=== PATIENT | male | born 1950 | race Caucasian/White ===

== ENCOUNTER 2018-01-31 14:33 | Emergency (ER) | payer OTHER ==
--- NOTE | 2018-01-31 16:03 | EDPHY ---
H & P Time Seen by Provider: 01/31/18 14:50 HPI/ROS: CHIEF COMPLAINT: Right hand injury HISTORY OF PRESENT ILLNESS: 67-year-old male presents to the emergency department with injury to the right hand. The patient was playing basketball and hit his right hand against another player's face. He complains of isolated pain to the right thumb. Denies any other injuries or trauma. He is right- hand dominant. He has pain especially with range of motion. ROS: Denies numbness or tingling in his fingers, pain in his right wrist or elbow. Past Medical/Surgical History: Dyslipidemia Social History: and lives in [place] Smoking Status: Never smoked Physical Exam: Examination of the right thumb reveals swelling especially over the 1st metacarpal. No rotational deformities noted. Nontender to palpate of the 1st MCP joint or PIP joint. There is deformity noted to the right 3rd finger at the PIP joint which is chronic. Full range of motion of the other fingers. Full range of motion of the right wrist. Normal sensation to light touch with normal 2 point discrimination. No abrasions or puncture wounds noted. Constitutional: Initial Vital Signs Temperature (C) 36.8 C 01/31/18 14:39 Heart Rate 66 01/31/18 14:39 Respiratory Rate 16 01/31/18 14:39 Blood Pressure 123/71 H 01/31/18 14:39 O2 Sat (%) 97 01/31/18 14:39 O2 Delivery Mode Room Air Allergies/Adverse Reactions: No Known Allergies Allergy (Unverified 01/31/18 14:43) Home Medications: Medication Instructions Recorded Atorvastatin Calcium 01/31/18 MDM/Departure - MDM Imaging Results: Imaging Impressions Hand X-Ray 01/31/18 15:01 Impression: Acute nondisplaced fracture involving the metaphyseal base of the thumb metacarpal. Procedures: The patient was placed in Ortho Glass Alumafoam splint and examined post application in good placement with normal [employer]. ED Course/Re-evaluation: 67-year-old male presents to the emergency department with right hand injury. X -rays reveal fracture to the base of the 1st metacarpal which is nondisplaced. He was placed in Ortho Glass thumb spica splint and given orthopedic hand surgical referral. - Depart Disposition: Home, Routine, Self-Care Clinical Impression: Fracture of thumb, right, closed Qualifiers: Encounter type: initial encounter Phalanx: proximal Fracture alignment: nondisplaced Qualified Code(s): S62.514A - Nondisplaced fracture of proximal phalanx of right thumb, initial encounter for closed fracture Condition: Good Instructions: Thumb Fracture (ED) Additional Instructions: Keep splint on and keep it dry. Ibuprofen 600mg every 8 hours for pain as directed. Referrals: Eric Cornell MD [Medical Doctor] - 2-3 days without fail (Hand surgeon on-call )
[2018-01-31 16:40] VITALS: BP 126/81
== END 2018-01-31 16:40 | disposition home or self-care (01) ==
DX: S62.514A Nondisplaced fracture of proximal phalanx of right thumb, initial encounter for closed fracture (principal); W22.8XXA Striking against or struck by other objects, initial encounter; Y99.8 Other external cause status; Y93.67 Activity, basketball

== ENCOUNTER → 2018-02-28 | Outpatient (CLI) | payer OTHER | LOC: BMCIMAGING 08:38 | PROVIDERS: ATTEND Orthopaedic Surgery Hand Surgery | DX: S62.231A Other displaced fracture of base of first metacarpal bone, right hand, initial encounter for closed fracture (principal); X58.XXXA Exposure to other specified factors, initial encounter ==